=== PATIENT | female | born 1945 | race Hispanic/Latino ===

== ENCOUNTER 2018-02-20 03:12 | Inpatient (IN) | payer OTHER, SELFPAY ==
[2018-02-20] MEDS ORDERED: Ondansetron ODT 4 MG TAB ONE (03:54)
[2018-02-20] MEDS ORDERED: Acetaminophen 325 MG TAB ONE ×2 (03:55)
[2018-02-20 04:00] LABS: #Lymphocytes 0.6 thou/uL (1.20-3.40); #Monocytes 0.5 thou/uL (0.11-0.59); #Neutrophils 11.8 thou/uL (1.40-6.50); %Basophils 0.1 % (0.0-1.0); %Lymphocytes 4.8 % (21.0-51.0); %Monocytes 3.9 % (0.0-10.0); %Neutrophils 91.2 % (42.0-75.0); Hemoglobin 7.2 g/dL (12.0-16.0); Mean Corpuscular HGB CONC 35.3 g/dL (32.0-36.0); Mean Corpuscular Hemoglobin 34.1 pg (27.0-31.0); Mean Corpuscular Volume 96.7 fL (78.0-98.0); Mean Platelet Volume 6.5 fL (7.4-10.4); Platelet Count 203 thou/uL (130-400); RBC Distribution Width 12.3 % (11.5-14.5); Red Blood Cell (RBC) Count 2.12 mill/uL (4.20-5.40)
[2018-02-20 04:21] LABS: ALT (SGPT) 22 U/L (8-55); AST (SGOT) 42 U/L (5-34); Albumin 3.6 g/dL (3.4-4.8); Alkaline Phosphatase 150 U/L (40-150); Anion Gap 14 mmol/L (10-20); BUN (Urea Nitrogen) 64 mg/dL (9.8-20.1); Bilirubin, Total 0.6 mg/dL (0.2-1.2); Calc. Creatinine Clearance 0 mL/min (70-130); Calcium 8.6 mg/dL (7.8-10.44); Carbon Dioxide 17 mmol/L (23-31); Chloride 97 mmol/L (98-107); Estimated GFR-MDRD 19; Globulin 3.4 g/dL (2.4-3.5); Glucose 182 mg/dL (80-115); Potassium 4.4 mmol/L (3.5-5.1); Sodium 124 mmol/L (136-145)
[2018-02-20 05:02] LABS: Bilirubin Negative (Negative); Blood, Urine Small (Negative); Clarity TURBID (Clear); Glucose, Urine (Dipstick) Negative (Negative); Leukocyte Large (Negative); Nitrite Negative (Negative); Protein, Urine (Dipstick) 30 mg/dL (Neg-Trace); Specific Gravity, Urine 1.008 (1.002-1.036); Urobilinogen 0.2 mg/dL (0.2-1.0); pH, Urine 6.5 (5.0-9.0)
[2018-02-20 05:05] LABS: Bacteria/HPF 4+ HPF (None Seen); RBC/HPF 0-3 HPF (0-3)
[2018-02-20 05:06] LABS: Pathc Cast-AUWi Flag 2.52 (0-2.49); Yeast-AUWi Flag 36.3 (0-25.0)
[2018-02-20 05:18] LABS: Hyaline Casts/LPF 0-3 HYALINE CAST LPF (0-3 Hyaline); Yeast-All Forms None Seen HPF (None Seen)
[2018-02-20] MEDS ORDERED: cefTRIAXone\\ROCEPHIN 2 GM VIAL ONE (05:29)
[2018-02-20] MEDS ORDERED: Acetaminophen 325 MG TAB PO PRN ×2 (06:22→06:39)
[2018-02-20] MEDS ORDERED: Ondansetron HCl/PF 4 MG/2 ML Vial IVP PRN ×2 (06:22→06:39)
[2018-02-20] MEDS ORDERED: Ondansetron ODT 4 MG TAB SL PRN (06:22)
[2018-02-20] MEDS ORDERED: Sodium Chloride 0.9% 1,000 ML IV SCH (06:22)
[2018-02-20] MEDS ORDERED: Ondansetron ODT 4 MG TAB PO PRN (06:39)
[2018-02-20] MEDS ORDERED: Dextrose 5% in Water 1,000 ML IV PRN (06:39)
[2018-02-20] MEDS ORDERED: Dextrose 50% Abboject 50 ML SYRINGE SLOW IVP PRN (06:39)
[2018-02-20] MEDS ORDERED: HumaLOG 300 UNITS/3 ML VIAL SC PRN (06:39)
--- NOTE | 2018-02-20 07:12 | HP ---
PRIMARY CARE PHYSICIAN: Dr. Green. MEDICAL PRACTICE MANAGER: Dr. Dickens. REASON FOR ADMISSION: Fever, low appetite and generalized weakness. HISTORY OF PRESENT ILLNESS: Please note that Ms. Ponce has another chart, it is under the name of Bartolome reyes Annel Ponceanatoliy Mayo and that Medical record number is [id number]. She was last in the hospital back in October of this year under the residential property manager service. Ms. Ponce is a 72-year-old female that has a history of hypertension, diabetes as well as diastolic heart failure and chronic kidney d isease. She was also found to have moderate to severe aortic stenosis on her last hospital stay and during that stay, it was recommended that she have a left and right heart catheterization to characte rize her valvular disease. However, due to her elevated creatinine and generalized debility, this wa s deferred to the outpatient setting. She was also treated for urinary tract infection at that time and at that time she grew E. coli, which was an extended beta lactamase explosive expert and she was also not ed to have some degree of urinary retention at that time as well. Her family brought her in today, b ecause she was generally weak and having a poor appetite. They also noted that she was having some b ack pain as well. They also said she had some fever and some nausea on yesterday and also the patien t herself says that she has been short of breath. She says it is worse when she tries to lay back an d she has had the shortness of breath since last night and early this morning. She denies having any chest pain, no dizziness or feeling lightheaded, but she has also noted some increasing in lower ext remity edema. She was evaluated here in the ER and she was found to be anemic and a slightly elevate d white blood cell count. Her sodium was a bit low and she had a urinalysis that was consistent with a possible urinary tract infection. She is being admitted for further evaluation and treatment. REVIEW OF SYSTEMS: All systems were reviewed and are negative except that mentioned in history of pr esent illness. Also, notable is that she did deny any dysuria. She denies any blood in the urine or any urinary frequency. Also, notable is that the patient is essentially bedbound. The family says that she has not walked in over a year after having a fracture with her leg. PAST MEDICAL HISTORY: Significant for diabetes mellitus which is diet controlled, hypertension, hist ory of hyponatremia in the past, chronic diastolic heart failure. Her ejection fraction was estimate d at 55%-60%. This was earlier this year in September and also had moderate to severe aortic stenosis and diastolic dysfunction. She also has chronic kidney disease stage 3. She has a baseline creatin ine of approximately 2.07. She has a history of nonobstructing renal stones as well as urinary reten tion. She sees Dr. Stewart. PAST SURGICAL HISTORY: She has had a hip replacement, right shoulder replacement and knee surgery. ALLERGIES: No known drug allergies. SOCIAL HISTORY: She is . She is a nonsmoker, nondrinker. CODE STATUS: FULL CODE. FAMILY HISTORY: Significant for diabetes mellitus. CURRENT MEDICATIONS: Include Flomax 0.4 mg daily, Zofran, amlodipine 10 mg daily, furosemide 40 mg d aily, estradiol 0.1%. PHYSICAL EXAMINATION: GENERAL: She is alert and oriented. She appears to be in no acute distress. VITAL SIGNS: Her blood pressure was approximately 130/70, heart rate in the 70s, respiratory rate is 16, and she is afebrile. HEENT: Pupils are equal, round, and reactive. Extraocular muscles are intact. Her sclerae are anic teric. Throat no erythema, no exudates. NECK: No adenopathy, no bruits. She does have distended neck veins; however. LUNGS: She did have some rales at the bases. No wheezing. CARDIOVASCULAR: She has a normal S1 and S2. I did not appreciate an S3 or S4. She does have a very harsh loud grade 3/6 systolic murmur, which radiates to the carotids. ABDOMEN: Soft, it is nontender, nondistended. Positive for bowel sounds. There was no rebound, no guarding. EXTREMITIES: She had 2+ pitting edema. The right was much greater than that of the left. There is no erythema, no warmth. She has palpable dorsalis pedis pulses bilaterally. NEUROLOGIC: The exam is grossly nonfocal. She is able to move all her extremities and there was no evidence of any obvious weakness. SKIN/INTEGUMENT: There was no significant skin changes. No rash. LABORATORY DATA: White blood cell count was 13, hemoglobin 7.2, hematocrit is 20.5, platelet count i s 203. Sodium was 124, potassium 4.4, chloride is 97, CO2 is 17, BUN of 24, creatinine 2.5, glucose is 182. Urinalysis was significant for too numerous to count WBCs, 4+ bacteria and 7-10 squamous yasemin ls. ASSESSMENT AND PLAN: This is a pleasant 72-year-old female that presents with generalized malaise, w eakness, fever, and some dyspnea. In review of her other chart, it appears as if she has a chronic c olonization and extended beta lactamase Escherichia coli, which is likely to be the case once again. She seems to be symptomatic from this. Based on the urine culture on 11/13/2017, the E. coli did ap pear to be sensitive to Zosyn. Therefore, we will go ahead and start the Zosyn at this time pending repeat culture results and she may require ID consultation once again. 1. Hyponatremia. I suspect this could actually be due to volume overload as her chest x-ray, she ap pears to be volume overloaded radiographically as well as clinically. This seems to have been a prob hever once before in the past. Therefore, we will give her a dose of IV Lasix. We will also check uri ne and serum osmolalities as well as her urine sodium to help us differentiate. 2. Generalized weakness. I suspect this is something that is chronic and it appears as if her elect rolytes and lab abnormalities are actually not far off from where she was on her last admission. Unf ortunately, in reviewing her chart from before, it appears as if she does not have a legal resident s tatus and was unable to be placed in a [facility] facility in the past. This is likely to be a continuing issue on this admission. We will go ahead and get a PT and OT consultation while she is h ere. 3. Mild acute on chronic renal failure. This may be a cardiogenic mediated. Hopefully with some di uresis, we will see some improvement in her renal function. If not, then Nephrology consultation ana luisa land be entertained. 4. Diabetes mellitus. She is diet controlled. We will place her on a sliding scale for this and fu rther recommendations are to follow.
--- NOTE | 2018-02-20 07:38 | ULT ---
BILATERAL RENAL ULTRASOUND COMPLETE: HISTORY: A 72-year-old female with a history of renal failure. FINDINGS: The right kidney measures 7.0 x 3.2 x 3.0 cm with very markedly thinned renal cortex. The left kidne y measures 8.5 x 4.9 x 3.7 cm which is also small. No hydronephrosis. There are several poorly circ umscribed hypoechoic foci adjacent to the right renal cortex, these could conceivably represents cyst s or slightly complicated cysts or less likely small hypoechoic solid masses. The bladder is unremar kable. IMPRESSION: Small kidneys bilaterally marked on the right side with irregular cortical thinning. Several slightl y exophytic hypoechoic foci of the right kidney, nonspecific, possibly small complicated cysts. Depe nding upon concern, consider additional imaging in this regard. No renal hydronephrosis. POS: OFF
[2018-02-20] MEDS: Sodium Chloride 0.9% 1,000 ML IV SCH ×2 (07:50→16:02)
--- NOTE | 2018-02-20 08:46 | RAD ---
SINGLE VIEW OF THE CHEST: COMPARISON: None. HISTORY: Fever for 3 days and vomiting. Dyspnea. FINDINGS: A single view of the chest shows an enlarged cardiomediastinal silhouette. Bilateral pulmonary vascu lar enlargement is seen. There are opacities in the lower lobes which may represent atelectasis or i nfiltrates. Small pleural effusions may also be present. The patient has a right shoulder prosthesi s. IMPRESSION: Bilateral pleural effusions with adjacent atelectasis versus infiltrates. POS: TPC
[2018-02-20] MEDS ORDERED: Famotidine 20 MG TAB PO SCH (09:00)
[2018-02-20] MEDS: Heparin 5,000 UNITS/ML VIAL SC SCH ×3 (09:42→20:44)
[2018-02-20] MEDS: Docusate 100 MG CAP PO SCH ×2 (09:42→20:44)
[2018-02-20] MEDS: Amlodipine 10 MG TAB PO SCH (09:44)
[2018-02-20] MEDS: Furosemide 40 MG/4 ML VIAL SLOW IVP SCH (14:37)
[2018-02-20] MEDS: Piperacillin/Tazobactam 2.25 GM in Sodium Chloride 0.9% 100 ML IVPB SCH ×2 (16:01→21:05)
[2018-02-20] MEDS ORDERED: cefTRIAXone\\ROCEPHIN 1 GM in Sodium Chloride 0.9% 100 ML IVPB SCH (17:00)
[2018-02-20] MEDS: HumaLOG 300 UNITS/3 ML VIAL SC PRN (17:34)
[2018-02-21 05:29] LABS: #Basophils 0.1 thou/uL (0.0-0.2); #Eosinphils 0.1 thou/uL (0.0-0.7); #Lymphocytes 1.3 thou/uL (1.20-3.40); #Monocytes 0.8 thou/uL (0.11-0.59); #Neutrophils 15.2 thou/uL (1.40-6.50); %Basophils 0.3 % (0.0-1.0); %Eosinophils 0.3 % (0.0-10.0); %Lymphocytes 7.6 % (21.0-51.0); %Monocytes 4.6 % (0.0-10.0); %Neutrophils 87.2 % (42.0-75.0); Hemoglobin 7.6 g/dL (12.0-16.0); Mean Corpuscular HGB CONC 34.1 g/dL (32.0-36.0); Mean Corpuscular Hemoglobin 33.6 pg (27.0-31.0); Mean Corpuscular Volume 98.7 fL (78.0-98.0); Mean Platelet Volume 6.7 fL (7.4-10.4); Platelet Count 207 thou/uL (130-400); RBC Distribution Width 12.4 % (11.5-14.5); Red Blood Cell (RBC) Count 2.27 mill/uL (4.20-5.40); White Blood Cell (WBC) Count 17.4 thou/uL (4.8-10.8)
[2018-02-21 05:41] LABS: Anion Gap 12 mmol/L (10-20); BUN (Urea Nitrogen) 56 mg/dL (9.8-20.1); Calc. Creatinine Clearance 23 mL/min (70-130); Calcium 8.1 mg/dL (7.8-10.44); Carbon Dioxide 17 mmol/L (23-31); Chloride 101 mmol/L (98-107); Estimated GFR-MDRD 20; Glucose 68 mg/dL (80-115); Potassium 4.1 mmol/L (3.5-5.1); Sodium 126 mmol/L (136-145)
[2018-02-21] MEDS: Piperacillin/Tazobactam 2.25 GM in Sodium Chloride 0.9% 100 ML IVPB SCH ×3 (06:25→21:52)
[2018-02-21] MEDS: Furosemide 40 MG/4 ML VIAL SLOW IVP SCH ×2 (06:25→15:06)
[2018-02-21] MEDS: Docusate 100 MG CAP PO SCH ×2 (08:25→21:57)
[2018-02-21] MEDS: Amlodipine 10 MG TAB PO SCH (08:25)
[2018-02-21] MEDS: Heparin 5,000 UNITS/ML VIAL SC SCH ×3 (08:26→21:57)
[2018-02-21] MEDS: Famotidine 20 MG TAB PO SCH (08:26)
--- NOTE | 2018-02-21 12:37 | PDOC.PN ---
- Subjective Encounter Start Date: 02/21/18 Encounter Start Time: 12:00 -: old records requested/rev Pt seen and examined, chart reviewed in its entirety, this is my first visit with this patient Admitted yesterday for UTI. Hx of ESBL positive chronic colonization. Afebrile, WBc up to 17 today. Pt feeling better, eating well. complaint of back pain, chronic, no F/C, no n/V /D/C, no CP or sOB melissa abx without rash All systems reviewed and neg x as above - Objective Resuscitation Status: Resuscitation Status FULL:Full Resuscitation MAR Reviewed: Yes Vital Signs & Weight: Vital Signs (12 hours) Temp Pulse Resp BP BP Pulse Ox 02/21/18 11:43 98.9 F 86 16 114/56 L 96 02/21/18 08:25 85 114/62 02/21/18 08:24 98.5 F 85 16 96 02/21/18 07:51 98.5 F 85 16 114/62 96 02/21/18 05:00 99.2 F 76 18 106/55 L 100 Weight Admit Weight 145 lb Weight 147 lb I&O: 02/20/18 02/21/18 02/22/18 06:59 06:59 06:59 Intake Total 240 Balance 240 Result Diagrams: 02/21/18 04:52 02/21/18 04:52 Additional Labs: Accuchecks 02/21/18 02/21/18 02/20/18 06:00 01:25 17:07 POC Glucose 78 74 168 H 02/20/18 10:56 POC Glucose 148 H Radiology Reviewed by me: Yes EKG Reviewed by me: Yes Phys Exam - Physical Examination Constitutional: NAD HEENT: PERRLA, moist MMs, sclera anicteric, oral pharynx no lesions Neck: no nodes, no JVD, supple, full ROM Respiratory: no wheezing, no rales, no rhonchi, clear to auscultation bilateral Cardiovascular: RRR, no significant murmur, no rub Gastrointestinal: soft, non-tender, no distention, positive bowel sounds Musculoskeletal: pulses present, edema present Neurological: non-focal, normal sensation, moves all 4 limbs Lymphatic: no nodes Psychiatric: normal affect, A&O x 3 Skin: no rash, normal turgor, cap refill <2 seconds Dx/Plan (1) Severe sepsis Code(s): A41.9 - SEPSIS, UNSPECIFIED ORGANISM; R65.20 - SEVERE SEPSIS WITHOUT SEPTIC SHOCK Status: Acute Comment: present on admit, due to UTI. WBC up, afebrile, Cr better. CCM. repeat AM labs (2) UTI (urinary tract infection) Status: Acute Qualifiers: Urinary tract infection type: acute cystitis Hematuria presence: without hematuria Qualified Code(s): N30.00 - Acute cystitis without hematuria (3) SALOMON (acute kidney injury) Code(s): N17.9 - ACUTE KIDNEY FAILURE, UNSPECIFIED Status: Acute (4) CKD (chronic kidney disease) stage 4, GFR 15-29 ml/min Code(s): N18.4 - CHRONIC KIDNEY DISEASE, STAGE 4 (SEVERE) Status: Chronic (5) Acute on chronic diastolic (congestive) heart failure Code(s): I50.33 - ACUTE ON CHRONIC DIASTOLIC (CONGESTIVE) HEART FAILURE Status : Acute (6) DM2 (diabetes mellitus, type 2) Status: Chronic Qualifiers: Diabetes mellitus adjunct faculty for medical terminology insulin use: unspecified adjunct faculty for medical terminology insulin use status Diabetes mellitus complication status: with kidney complications Diabetes mellitus complication detail: with chronic kidney disease Chronic kidney disease stage: stage 4 (severe) Qualified Code(s): E11.22 - Type 2 diabetes mellitus with diabetic chronic kidney disease; N18.4 - Chronic kidney disease, stage 4 (severe); N18.4 - Chronic kidney disease, stage 4 (severe); N18.4 - Chronic kidney disease, stage 4 (severe); N18.4 - Chronic kidney disease , stage 4 (severe) - Plan cont current plan of care, continue antibiotics, out of bed/ambulate * .
--- NOTE | 2018-02-21 13:03 | EKG ---
Test Reason : FEVER,BACK PAIN Blood Pressure : / mmHG Vent. Rate : 088 BPM Atrial Rate : 088 BPM P-R Int : 184 ms QRS Dur : 090 ms QT Int : 364 ms P-R-T Axes : 047 007 059 degrees QTc Int : 440 ms Normal sinus rhythm Nonspecific ST abnormality Abnormal ECG Confirmed by ALLY SANDOVAL, LELO ([id number]), material expeditor OLYA SANCHEZ ([id number]) on 02/21/2018 1:02:45 PM Referred By: Confirmed By:LELO CANALES MD
[2018-02-22] MEDS: Piperacillin/Tazobactam 2.25 GM in Sodium Chloride 0.9% 100 ML IVPB SCH ×3 (05:07→20:53)
[2018-02-22] MEDS: Furosemide 40 MG/4 ML VIAL SLOW IVP SCH ×2 (05:07→14:30)
[2018-02-22 05:24] LABS: Hemoglobin A1c 4.4 % (4.0-6.0)
[2018-02-22 05:26] LABS: #Basophils 0.1 thou/uL (0.0-0.2); #Eosinphils 0.1 thou/uL (0.0-0.7); #Lymphocytes 1.4 thou/uL (1.20-3.40); #Monocytes 0.9 thou/uL (0.11-0.59); #Neutrophils 12.6 thou/uL (1.40-6.50); %Basophils 0.3 % (0.0-1.0); %Eosinophils 0.4 % (0.0-10.0); %Lymphocytes 9.2 % (21.0-51.0); %Monocytes 5.8 % (0.0-10.0); %Neutrophils 84.2 % (42.0-75.0); Hemoglobin 6.8 g/dL (12.0-16.0); Mean Corpuscular HGB CONC 34.5 g/dL (32.0-36.0); Mean Corpuscular Hemoglobin 33.9 pg (27.0-31.0); Mean Corpuscular Volume 98.1 fL (78.0-98.0); Mean Platelet Volume 6.6 fL (7.4-10.4); Platelet Count 200 thou/uL (130-400); RBC Distribution Width 12.4 % (11.5-14.5); Red Blood Cell (RBC) Count 2.01 mill/uL (4.20-5.40)
[2018-02-22 05:42] LABS: Anion Gap 14 mmol/L (10-20); BUN (Urea Nitrogen) 57 mg/dL (9.8-20.1); Calc. Creatinine Clearance 20 mL/min (70-130); Calcium 8.2 mg/dL (7.8-10.44); Carbon Dioxide 18 mmol/L (23-31); Chloride 99 mmol/L (98-107); Estimated GFR-MDRD 17; Glucose 82 mg/dL (80-115); Potassium 3.7 mmol/L (3.5-5.1); Sodium 127 mmol/L (136-145)
[2018-02-22] MEDS ORDERED: hydrALAZINE 20 MG/ML VIAL SLOW IVP PRN (07:44)
[2018-02-22] MEDS ORDERED: HYDROcodone/Acetaminophen 5/325 mg Tablet PO PRN (07:44)
[2018-02-22] MEDS ORDERED: Eucerin (Mineral Oil/Petrolatum,White) 30 gm Jar TOP PRN (07:44)
[2018-02-22] MEDS ORDERED: Artificial Tears 18 DROP/0.9 ML EA EYE PRN (07:44)
[2018-02-22] MEDS ORDERED: Loratadine 10 MG TAB PO PRN (07:44)
[2018-02-22] MEDS ORDERED: Sodium Chloride 0.65% Nasal 44 ML BOT EA NARE PRN (07:44)
[2018-02-22] MEDS ORDERED: Diabetic Tussin 200 MG/10 ML UDCUP PO PRN (07:44)
[2018-02-22] MEDS ORDERED: Chloraseptic Spray 180 ml Bottle PO PRN (07:44)
[2018-02-22] MEDS ORDERED: Milk Of Magnesia 30 ML UDCUP PO PRN (07:44)
[2018-02-22] MEDS ORDERED: Mag-Al 1200 mg/1200 mg/30 ML UDCUP PO PRN (07:44)
[2018-02-22] MEDS ORDERED: Epoetin (ESRD) 20,000 UNITS/ML SC SCH (07:45)
[2018-02-22] MEDS: Docusate 100 MG CAP PO SCH ×2 (08:52→20:54)
[2018-02-22] MEDS: Famotidine 20 MG TAB PO SCH (08:52)
[2018-02-22] MEDS: Amlodipine 5 MG TAB PO SCH (08:53)
[2018-02-22] MEDS: Ferrous Sulfate 325 MG TAB PO SCH (08:55)
[2018-02-22] MEDS: Saccharomyces boulardii 250 MG CAP PO SCH (08:55)
[2018-02-22] MEDS: Heparin 5,000 UNITS/ML VIAL SC SCH ×2 (08:55→20:54)
[2018-02-22] MEDS: HumaLOG 300 UNITS/3 ML VIAL SC PRN ×2 (11:00→17:29)
--- NOTE | 2018-02-22 11:16 | PDOC.PN ---
- Subjective Encounter Start Date: 02/22/18 Encounter Start Time: 07:10 -: old records requested/rev Patient seen and examined for chf and anemia, feels weak. No new complaints. No overnight events - Objective Resuscitation Status: Resuscitation Status FULL:Full Resuscitation MAR Reviewed: Yes Vital Signs & Weight: Vital Signs (12 hours) Temp Pulse Pulse Resp BP BP BP 02/22/18 10:44 99.1 F 81 17 108/58 L 02/22/18 08:53 86 110/64 02/22/18 08:00 98.2 F 86 16 110/61 02/22/18 04:00 99.1 F 79 18 112/60 02/22/18 02:52 02/22/18 00:00 98.4 F 82 20 123/64 Pulse Ox 02/22/18 10:44 95 02/22/18 08:53 02/22/18 08:00 94 L 02/22/18 04:00 97 02/22/18 02:52 100 02/22/18 00:00 93 L Weight Admit Weight 145 lb Weight 140 lb 4.8 oz I&O: 02/21/18 02/22/18 02/23/18 06:59 06:59 06:59 Intake Total 240 340 Output Total 350 Balance -110 340 Result Diagrams: 02/22/18 04:45 02/22/18 04:45 Additional Labs: Accuchecks 02/22/18 02/22/18 02/21/18 10:31 06:02 20:26 POC Glucose 161 H 89 144 H 02/21/18 02/21/18 16:33 10:43 POC Glucose 118 H 110 EKG Reviewed by me: Yes (nsr) Phys Exam - Physical Examination Constitutional: NAD HEENT: PERRLA, moist MMs, sclera anicteric Neck: no JVD, supple Respiratory: no wheezing, no rhonchi reduceed air entry at base Cardiovascular: RRR, no rub SM+ Gastrointestinal: soft, non-tender, no distention, positive bowel sounds Musculoskeletal: pulses present, edema present Neurological: non-focal, normal sensation, moves all 4 limbs Psychiatric: normal affect, A&O x 3 Skin: no rash, normal turgor Dx/Plan (1) Acute on chronic diastolic (congestive) heart failure Code(s): I50.33 - ACUTE ON CHRONIC DIASTOLIC (CONGESTIVE) HEART FAILURE Status : Acute (2) Hyponatremia Code(s): E87.1 - HYPO-OSMOLALITY AND HYPONATREMIA Status: Acute (3) Severe sepsis Code(s): A41.9 - SEPSIS, UNSPECIFIED ORGANISM; R65.20 - SEVERE SEPSIS WITHOUT SEPTIC SHOCK Status: Acute Comment: present on admit, due to UTI. WBC up, afebrile, Cr better. CCM. repeat AM labs (4) UTI (urinary tract infection) Status: Acute Qualifiers: Urinary tract infection type: acute cystitis Hematuria presence: without hematuria Qualified Code(s): N30.00 - Acute cystitis without hematuria (5) Anemia of renal disease Code(s): D63.1 - ANEMIA IN CHRONIC KIDNEY DISEASE Status: Chronic (6) CKD (chronic kidney disease) stage 4, GFR 15-29 ml/min Code(s): N18.4 - CHRONIC KIDNEY DISEASE, STAGE 4 (SEVERE) Status: Chronic (7) DM2 (diabetes mellitus, type 2) Status: Chronic Qualifiers: Diabetes mellitus study manager insulin use: unspecified intermediate insulin use status Diabetes mellitus complication status: with kidney complications Diabetes mellitus complication detail: with chronic kidney disease Chronic kidney disease stage: stage 4 (severe) Qualified Code(s): E11.22 - Type 2 diabetes mellitus with diabetic chronic kidney disease; N18.4 - Chronic kidney disease, stage 4 (severe); N18.4 - Chronic kidney disease, stage 4 (severe); N18.4 - Chronic kidney disease, stage 4 (severe); N18.4 - Chronic kidney disease , stage 4 (severe) (8) Secondary hyperparathyroidism of renal origin Code(s): N25.81 - SECONDARY HYPERPARATHYROIDISM OF RENAL ORIGIN Status: Chronic - Plan cont current plan of care, plan discussed w/ family, continue antibiotics, DVT proph w/heparin * add procrit * add renvela * reduce amlodipine to 5 mg daily * transfuse 1 unit prbc * medication reviewed as below * symptomatic treatment * discussed with . * continue zosyn * add ferrous sulfate, nephrovite Review of Systems - Review of Systems Constitutional: weakness. negative: fever, chills, sweats, malaise, other Eyes: negative: Pain, Vision Change, Conjunctivae Inflammation, Eyelid Inflammation, Redness, Other ENT: negative: Ear Pain, Ear Discharge, Nose Pain, Nose Discharge, Nose Congestion, Mouth Pain, Mouth Swelling, Throat Pain, Throat Swelling, Other Respiratory: negative: Cough, Dry, Shortness of Breath, Hemoptysis, SOB with Excertion, Pleuritic Pain, Sputum, Wheezing Cardiovascular: negative: chest pain, palpitations, orthopnea, paroxysmal nocturnal dyspnea, edema, light headedness, other Gastrointestinal: negative: Nausea, Vomiting, Abdominal Pain, Diarrhea, Constipation, Melena, Hematochezia, Other Genitourinary: negative: Dysuria, Frequency, Incontinence, Hematuria, Retention , Other Musculoskeletal: negative: Neck Pain, Shoulder Pain, Arm Pain, Back Pain, Hand Pain, Leg Pain, Foot Pain, Other Skin: negative: Rash, Lesions, Anam, Bruising, Other - Medications/Allergies Allergies/Adverse Reactions: Allergies Allergy/AdvReac Type Severity Reaction Status Date / Time No Known Allergies Allergy Verified 02/20/18 13:17 Medications: Current Medications Acetaminophen (Tylenol) 650 mg PO Q4H PRN PRN Reason: Headache/Fever or Pain Last Admin: 02/20/18 18:33 Dose: 650 mg Hydrocodone Bitart/Acetaminophen ([place] 5/325) 1 tab PO Q4H PRN PRN Reason: Moderate Pain (4-6) Al Hydroxide/Mg Hydroxide (Maalox) 15 ml PO Q4H PRN PRN Reason: Heartburn or Indigestion Amlodipine Besylate (Norvasc) 5 mg PO DAILY [facility] Last Admin: 02/22/18 08:53 Dose: 5 mg Artificial Tears (Tears Naturale) 0 drop EA EYE PRN PRN PRN Reason: Dry Eyes Dextrose/Water (Dextrose 50%) 25 gm SLOW IVP PRN PRN PRN Reason: Hypoglycemia Docusate Sodium (Colace) 100 mg PO BID [facility] Last Admin: 02/22/18 08:52 Dose: 100 mg Epoetin Trerell (Procrit) 7,500 units SC Q7D [facility] Last Admin: 02/22/18 09:24 Dose: 7,500 units Famotidine (Pepcid) 20 mg PO DAILY [facility] Last Admin: 02/22/18 08:52 Dose: 20 mg Ferrous Sulfate (Feosol) 325 mg PO QAM-WM [facility] Last Admin: 02/22/18 08:55 Dose: 325 mg Furosemide (Lasix) 40 mg SLOW IVP 0600,1400 [facility] Last Admin: 02/22/18 05:07 Dose: 40 mg Glucagon (Glucagon) 1 mg IM PRN PRN PRN Reason: Hypoglycemia Guaifenesin (Robitussin Sf) 200 mg PO Q4H PRN PRN Reason: Cough Heparin Sodium (Porcine) (Heparin) 5,000 units SC BID [facility] Last Admin: 02/22/18 08:55 Dose: 5,000 units Hydralazine HCl (Apresoline) 10 mg SLOW IVP Q4H PRN PRN Reason: Systolic BP > 180 Dextrose/Water (D5w) 1,000 mls @ 0 mls/hr IV .Q0M PRN; As Directed PRN Reason: Hypoglycemia Piperacillin Sod/Tazobactam (Sod 2.25 gm/ Sodium Chloride) 100 mls @ 200 mls/ hr IVPB Q8HR [facility] Last Admin: 02/22/18 05:07 Dose: 100 mls Insulin Human Lispro (Humalog) 0 units SC .MODERATE SLIDING SC PRN PRN Reason: Moderate Correctional Scale Last Admin: 02/22/18 11:00 Dose: 2 unit Insulin Human Lispro (Humalog) 0 units SC .BEDTIME SLIDING SC PRN PRN Reason: Bedtime Correctional Scale Loratadine (Claritin) 10 mg PO DAILYPRN PRN PRN Reason: Sinus Symptoms Magnesium Hydroxide (Milk Of Magnesium) 30 ml PO DAILYPRN PRN PRN Reason: Constipation Mineral Oil/White Petrolatum (Eucerin Cream) 0 gm TOP BIDPRN PRN PRN Reason: Dry Skin Ondansetron HCl (Zofran Odt) 4 mg PO Q6H PRN PRN Reason: Nausea/Vomiting Ondansetron HCl (Zofran) 4 mg IVP Q6H PRN PRN Reason: Nausea/Vomiting Phenol (Chloraseptic Armstrong 180 Ml Bot) 0 ml PO PRN PRN PRN Reason: Sore Throat Saccharomyces Boulardii (Florastor) 250 mg PO DAILY [facility] Last Admin: 02/22/18 08:55 Dose: 250 mg Sodium Chloride (Flush - Normal Saline) 10 ml IVF Q12HR [facility] Last Admin: 02/22/18 10:41 Dose: 10 ml Sodium Chloride (Flush - Normal Saline) 10 ml IVF PRN PRN PRN Reason: Saline Flush Last Admin: 02/21/18 06:25 Dose: 10 ml Sodium Chloride ([place] Nasal Armstrong 0.65%) 0 ml EA NARE QIDPRN PRN PRN Reason: Nasal Congestion
[2018-02-22] MEDS: Sevelamer Carbonate 800 MG TAB PO SCH ×2 (12:34→16:26)
[2018-02-23 05:17] LABS: #Eosinphils 0.1 thou/uL (0.0-0.7); #Lymphocytes 1.7 thou/uL (1.20-3.40); #Monocytes 0.8 thou/uL (0.11-0.59); #Neutrophils 8.8 thou/uL (1.40-6.50); %Basophils 0.4 % (0.0-1.0); %Eosinophils 1.2 % (0.0-10.0); %Lymphocytes 14.9 % (21.0-51.0); %Monocytes 6.9 % (0.0-10.0); %Neutrophils 76.7 % (42.0-75.0); Hemoglobin 8.7 g/dL (12.0-16.0); Mean Corpuscular Hemoglobin 33.3 pg (27.0-31.0); Mean Corpuscular Volume 95.3 fL (78.0-98.0); Mean Platelet Volume 6.3 fL (7.4-10.4); Platelet Count 219 thou/uL (130-400); RBC Distribution Width 13.4 % (11.5-14.5); Red Blood Cell (RBC) Count 2.62 mill/uL (4.20-5.40); White Blood Cell (WBC) Count 11.5 thou/uL (4.8-10.8)
[2018-02-23 05:22] LABS: ALT (SGPT) 12 U/L (8-55); AST (SGOT) 13 U/L (5-34); Albumin 3.1 g/dL (3.4-4.8); Alkaline Phosphatase 104 U/L (40-150); Anion Gap 14 mmol/L (10-20); BUN (Urea Nitrogen) 51 mg/dL (9.8-20.1); Bilirubin, Total 0.7 mg/dL (0.2-1.2); Calc. Creatinine Clearance 20 mL/min (70-130); Calcium 8.4 mg/dL (7.8-10.44); Carbon Dioxide 18 mmol/L (23-31); Chloride 99 mmol/L (98-107); Estimated GFR-MDRD 17; Globulin 3.3 g/dL (2.4-3.5); Glucose 87 mg/dL (80-115); Potassium 3.4 mmol/L (3.5-5.1); Protein, Total 6.4 g/dL (6.0-8.3); Sodium 128 mmol/L (136-145)
[2018-02-23] MEDS: Furosemide 40 MG/4 ML VIAL SLOW IVP SCH ×2 (05:36→13:51)
[2018-02-23] MEDS: Piperacillin/Tazobactam 2.25 GM in Sodium Chloride 0.9% 100 ML IVPB SCH ×2 (05:36→13:51)
[2018-02-23] MEDS: Famotidine 20 MG TAB PO SCH (08:11)
[2018-02-23] MEDS: Folic Acid/Vit B Comp W-C PO SCH (08:11)
[2018-02-23] MEDS: Sevelamer Carbonate 800 MG TAB PO SCH ×3 (08:11→16:44)
[2018-02-23] MEDS: Amlodipine 5 MG TAB PO SCH (08:11)
[2018-02-23] MEDS: Ferrous Sulfate 325 MG TAB PO SCH (08:11)
[2018-02-23] MEDS: Heparin 5,000 UNITS/ML VIAL SC SCH ×2 (08:12→20:46)
[2018-02-23] MEDS: Docusate 100 MG CAP PO SCH ×2 (08:12→20:46)
[2018-02-23] MEDS: Saccharomyces boulardii 250 MG CAP PO SCH (08:12)
--- NOTE | 2018-02-23 10:04 | PDOC.PN ---
- Subjective Encounter Start Date: 02/23/18 Encounter Start Time: 07:10 Patient seen and examined for uti. No new complaints. No overnight events - Objective Resuscitation Status: Resuscitation Status FULL:Full Resuscitation MAR Reviewed: Yes Vital Signs & Weight: Vital Signs (12 hours) Temp Pulse Resp BP BP Pulse Ox 02/23/18 08:16 98.2 F 80 20 91 L 02/23/18 08:11 80 125/64 02/23/18 07:44 98.2 F 81 20 125/61 91 L 02/23/18 03:41 98 F 85 20 125/67 93 L 02/23/18 00:09 98.2 F 85 20 130/64 92 L Weight Admit Weight 145 lb Weight 144 lb 9.6 oz I&O: 02/22/18 02/23/18 02/24/18 06:59 06:59 06:59 Intake Total 240 1620 Output Total 350 250 Balance -110 1370 Result Diagrams: 02/23/18 04:38 02/23/18 04:38 Additional Labs: Accuchecks 02/23/18 02/22/18 02/22/18 05:07 21:02 17:17 POC Glucose 93 131 H 174 H 02/22/18 10:31 POC Glucose 161 H EKG Reviewed by me: Yes (nsr) Phys Exam - Physical Examination Constitutional: NAD HEENT: PERRLA, moist MMs, sclera anicteric Neck: no JVD, supple Respiratory: no wheezing, no rales, no rhonchi Cardiovascular: RRR, no rub SM+ Gastrointestinal: soft, non-tender, no distention, positive bowel sounds Musculoskeletal: no edema, pulses present Neurological: non-focal, normal sensation, moves all 4 limbs Lymphatic: no nodes Psychiatric: normal affect, A&O x 3 Skin: no rash, normal turgor Dx/Plan (1) Acute on chronic diastolic (congestive) heart failure Code(s): I50.33 - ACUTE ON CHRONIC DIASTOLIC (CONGESTIVE) HEART FAILURE Status : Acute (2) Hyponatremia Code(s): E87.1 - HYPO-OSMOLALITY AND HYPONATREMIA Status: Acute (3) Severe sepsis Code(s): A41.9 - SEPSIS, UNSPECIFIED ORGANISM; R65.20 - SEVERE SEPSIS WITHOUT SEPTIC SHOCK Status: Acute Comment: present on admit, due to UTI. WBC up, afebrile, Cr better. CCM. repeat AM labs (4) UTI (urinary tract infection) Status: Acute Qualifiers: Urinary tract infection type: acute cystitis Hematuria presence: without hematuria Qualified Code(s): N30.00 - Acute cystitis without hematuria (5) Anemia of renal disease Code(s): D63.1 - ANEMIA IN CHRONIC KIDNEY DISEASE Status: Chronic (6) CKD (chronic kidney disease) stage 4, GFR 15-29 ml/min Code(s): N18.4 - CHRONIC KIDNEY DISEASE, STAGE 4 (SEVERE) Status: Chronic (7) DM2 (diabetes mellitus, type 2) Status: Chronic Qualifiers: Diabetes mellitus termite control technician insulin use: unspecified senior living insulin use status Diabetes mellitus complication status: with kidney complications Diabetes mellitus complication detail: with chronic kidney disease Chronic kidney disease stage: stage 4 (severe) Qualified Code(s): E11.22 - Type 2 diabetes mellitus with diabetic chronic kidney disease; N18.4 - Chronic kidney disease, stage 4 (severe); N18.4 - Chronic kidney disease, stage 4 (severe); N18.4 - Chronic kidney disease, stage 4 (severe); N18.4 - Chronic kidney disease , stage 4 (severe) (8) Secondary hyperparathyroidism of renal origin Code(s): N25.81 - SECONDARY HYPERPARATHYROIDISM OF RENAL ORIGIN Status: Chronic - Plan cont current plan of care, plan discussed w/ family, continue antibiotics, social contact worker * DC tele * transfer to medical * Consult ID to decide if we need to treat MDR bacterial UTI vs just colonization * medication reviewed as below * symptomatic treatment Review of Systems - Review of Systems Eyes: negative: Pain, Vision Change, Conjunctivae Inflammation, Eyelid Inflammation, Redness, Other ENT: negative: Ear Pain, Ear Discharge, Nose Pain, Nose Discharge, Nose Congestion, Mouth Pain, Mouth Swelling, Throat Pain, Throat Swelling, Other Respiratory: negative: Cough, Dry, Shortness of Breath, Hemoptysis, SOB with Excertion, Pleuritic Pain, Sputum, Wheezing Cardiovascular: negative: chest pain, palpitations, orthopnea, paroxysmal nocturnal dyspnea, edema, light headedness, other Gastrointestinal: negative: Nausea, Vomiting, Abdominal Pain, Diarrhea, Constipation, Melena, Hematochezia, Other Genitourinary: negative: Dysuria, Frequency, Incontinence, Hematuria, Retention , Other Musculoskeletal: negative: Neck Pain, Shoulder Pain, Arm Pain, Back Pain, Hand Pain, Leg Pain, Foot Pain, Other Skin: negative: Rash, Lesions, Anam, Bruising, Other - Medications/Allergies Allergies/Adverse Reactions: Allergies Allergy/AdvReac Type Severity Reaction Status Date / Time No Known Allergies Allergy Verified 02/20/18 13:17 Medications: Current Medications Acetaminophen (Tylenol) 650 mg PO Q4H PRN PRN Reason: Headache/Fever or Pain Last Admin: 02/20/18 18:33 Dose: 650 mg Hydrocodone Bitart/Acetaminophen ([place] 5/325) 1 tab PO Q4H PRN PRN Reason: Moderate Pain (4-6) Al Hydroxide/Mg Hydroxide (Maalox) 15 ml PO Q4H PRN PRN Reason: Heartburn or Indigestion Amlodipine Besylate (Norvasc) 5 mg PO DAILY [facility] Last Admin: 02/23/18 08:11 Dose: 5 mg Artificial Tears (Tears Naturale) 0 drop EA EYE PRN PRN PRN Reason: Dry Eyes Dextrose/Water (Dextrose 50%) 25 gm SLOW IVP PRN PRN PRN Reason: Hypoglycemia Docusate Sodium (Colace) 100 mg PO BID [facility] Last Admin: 02/23/18 08:12 Dose: 100 mg Epoetin Terrell (Procrit) 7,500 units SC Q7D [facility] Last Admin: 02/22/18 09:24 Dose: 7,500 units Famotidine (Pepcid) 20 mg PO DAILY [facility] Last Admin: 02/23/18 08:11 Dose: 20 mg Ferrous Sulfate (Feosol) 325 mg PO QAM-[facility] Last Admin: 02/23/18 08:11 Dose: 325 mg Furosemide (Lasix) 40 mg SLOW IVP 0600,1400 [facility] Last Admin: 02/23/18 05:36 Dose: 40 mg Glucagon (Glucagon) 1 mg IM PRN PRN PRN Reason: Hypoglycemia Guaifenesin (Robitussin Sf) 200 mg PO Q4H PRN PRN Reason: Cough Heparin Sodium (Porcine) (Heparin) 5,000 units SC BID [facility] Last Admin: 02/23/18 08:12 Dose: 5,000 units Hydralazine HCl (Apresoline) 10 mg SLOW IVP Q4H PRN PRN Reason: Systolic BP > 180 Dextrose/Water (D5w) 1,000 mls @ 0 mls/hr IV .Q0M PRN; As Directed PRN Reason: Hypoglycemia Piperacillin Sod/Tazobactam (Sod 2.25 gm/ Sodium Chloride) 100 mls @ 200 mls/ hr IVPB Q8HR [facility] Last Admin: 02/23/18 05:36 Dose: 100 mls Insulin Human Lispro (Humalog) 0 units SC .MODERATE SLIDING SC PRN PRN Reason: Moderate Correctional Scale Last Admin: 02/22/18 17:29 Dose: 2 unit Insulin Human Lispro (Humalog) 0 units SC .BEDTIME SLIDING SC PRN PRN Reason: Bedtime Correctional Scale Loratadine (Claritin) 10 mg PO DAILYPRN PRN PRN Reason: Sinus Symptoms Magnesium Hydroxide (Milk Of Magnesium) 30 ml PO DAILYPRN PRN PRN Reason: Constipation Mineral Oil/White Petrolatum (Eucerin Cream) 0 gm TOP BIDPRN PRN PRN Reason: Dry Skin Ondansetron HCl (Zofran Odt) 4 mg PO Q6H PRN PRN Reason: Nausea/Vomiting Ondansetron HCl (Zofran) 4 mg IVP Q6H PRN PRN Reason: Nausea/Vomiting Phenol (Chloraseptic [place] 180 Ml Bot) 0 ml PO PRN PRN PRN Reason: Sore Throat Saccharomyces Boulardii (Florastor) 250 mg PO DAILY [facility] Last Admin: 02/23/18 08:12 Dose: 250 mg Sevelamer Carbonate (Renvela) 800 mg PO TID-[facility] Last Admin: 02/23/18 08:11 Dose: 800 mg Sodium Chloride (Flush - Normal Saline) 10 ml IVF Q12HR [facility] Last Admin: 02/23/18 09:09 Dose: 10 ml Sodium Chloride (Flush - Normal Saline) 10 ml IVF PRN PRN PRN Reason: Saline Flush Last Admin: 02/23/18 05:37 Dose: 10 ml Sodium Chloride ([place] Nasal [place] 0.65%) 0 ml EA NARE QIDPRN PRN PRN Reason: Nasal Congestion Vitamin B Complex/Vit C/Folic Acid (Nephro-Zafar Tablet) 1 tab PO DAILY [facility] Last Admin: 02/23/18 08:11 Dose: 1 tab
[2018-02-23] MEDS: HumaLOG 300 UNITS/3 ML VIAL SC PRN (12:18)
[2018-02-23] MEDS: Meropenem 500 MG in Sodium Chloride 0.9% 100 ML IVPB SCH (20:46)
--- NOTE | 2018-02-24 01:54 | CON ---
DATE OF CONSULTATION: 02/23/2018 REASON FOR CONSULTATION: Abnormal urinalysis with a resistant pathogen and urine culture. HISTORY OF PRESENT ILLNESS: A 72-year-old, just to be the first admission to this hospital at least within the recent time who has a history of hypertension , diabetes, diastolic heart failure, renal insufficiency and was found to have severe aortic stenosis. She actually has a different hospital record number and she must have had previous admissions to this hospital, but in a different file. When she was admitted the last time, she was recommended to have a heart catheterization, but this was deferred because of elevated creatinine. She also had an ESBL E. coli in the urinary tract and some degree of urinary retention at that time. The reason for this admission include the development of weakness. She stated to me that she was having shortness of breath. She has some back pain in lower back region, which is very symmetrically distributed. Had some fever, some nausea. No headaches, no change in visual symptoms, sore throat, odynophagia, dysphagia, no vomiting. She does have urinary incontinence, but denied any dysuria or hematuria. No diarrhea or constipation. PAST MEDICAL HISTORY: Includes type 2 diabetes, hypertension, diastolic CHF, EF 55-60%, aortic stenosis, renal insufficiency, and nephrolithiasis. Reportedly, had a fracture in the leg and has a limp right foot following this fracture, has not been able to walk over a year. She also had a right shoulder just to be a fracture or some other disorder that led to surgical intervention. She is weaker in the right upper extremity as well. She denied any prior CVA. PAST SURGICAL HISTORY: Also includes hip replacement and right shoulder replacement. ALLERGIES: None. SOCIAL HISTORY: Nonsmoker. Has had 10 kids. FAMILY HISTORY: Diabetes type 2. CURRENT MEDICATIONS: Include hydrocodone, Maalox, Norvasc, dextrose, docusate, Procrit, Pepcid, Lasix, Feosol, Robitussin, insulin, loratadine, Zofran, Zosyn, Renvela. PHYSICAL EXAMINATION: VITAL SIGNS: T-max 100.6 on arrival. She has been afebrile since blood pressure 120/60, pulse 76, respirations 18, O2 sat 92-96%. SKIN: With areas of laceration in the lateral aspect of the right leg from a fall and abrasion, she has a little bit of erythema in intertriginous areas of the right gluteal region. NECK: The patient has no lymphadenopathy. Supple, no jugular vein distention. GENERAL: She is awake, oriented. HEENT: Ocular movements conjugate. Pupils are equal. Conjunctivae normal. Nasal passages patent. Oral cavity with numerous teeth with marked decay and some gum disease. LUNGS: With symmetric air entry with bibasilar inspiratory crackles. HEART: S1, S2, regular rate with a soft aortic murmur. ABDOMEN: Soft, not distended or tender. No ascites. No bladder distention or maybe a question of bladder distention. EXTREMITIES: She has a limp right foot. Little weaker right lower extremity and the right upper extremity, probably related to the fractures in both sides and both limbs that she states the left side appears to have normal strength. Pulses are 1+ in dorsalis pedis. Plantar responses are absent on the right side , in the left side flexor. NEUROLOGIC: Cognitive function appears to be intact. LABORATORY DATA: White cell count 13,000, now down to 11, hemoglobin 8.7, platelets 219 and 76% neutrophils. Sodium 128, creatinine 2.77. Liver profile normal. Albumin 3.1. Urinalysis with wbc's greater than 50. Urine culture with E. coli which has an ESBL phenotype. The same organism was isolated at the end of December and November of this year. There is a renal ultrasound from 2017 with small kidneys bilaterally with irregular cortical thinning, but no nephrolithiasis. ASSESSMENT: Type 2 diabetes; renal insufficiency, chronic; question of urinary retention; chronic colonization of urinary bladder, now with a possible invasive infection in the phase of fever and abnormal urinalysis and severe aortic stenosis. The patient has mobility impairment because of prior fracture in the right lower extremity with limp right foot. DISCUSSION: Patient will continue on treatment with meropenem adjusted for renal function and she will need treatment for at least another 7-10 days. She would otherwise need a Mata catheter placement, but we will see if we can arrange this treatment given via peripheral IV access to avoid having to place a central line and administer Invanz for a total of 10 days. It is important to verify that she has proper emptying, otherwise, she will need in and out catheterization. DANED
[2018-02-24] MEDS: Furosemide 40 MG/4 ML VIAL SLOW IVP SCH ×2 (06:19→13:14)
[2018-02-24] MEDS: Sevelamer Carbonate 800 MG TAB PO SCH ×2 (08:13→11:44)
[2018-02-24] MEDS: Ferrous Sulfate 325 MG TAB PO SCH (08:13)
[2018-02-24] MEDS: Amlodipine 5 MG TAB PO SCH (08:13)
[2018-02-24] MEDS: Saccharomyces boulardii 250 MG CAP PO SCH (08:14)
[2018-02-24] MEDS: Famotidine 20 MG TAB PO SCH (08:14)
[2018-02-24] MEDS: Docusate 100 MG CAP PO SCH (08:14)
[2018-02-24] MEDS: Heparin 5,000 UNITS/ML VIAL SC SCH (08:14)
[2018-02-24] MEDS: Folic Acid/Vit B Comp W-C PO SCH (08:14)
[2018-02-24] MEDS: Meropenem 500 MG in Sodium Chloride 0.9% 100 ML IVPB SCH (08:37)
--- NOTE | 2018-02-24 12:18 | PDOC.PN ---
- Subjective Encounter Start Date: 02/24/18 Encounter Start Time: 08:00 Patient seen and examined for UTI. No new complaints. No overnight events - Objective Resuscitation Status: Resuscitation Status FULL:Full Resuscitation MAR Reviewed: Yes Vital Signs & Weight: Vital Signs (12 hours) Temp Pulse Resp BP BP Pulse Ox 02/24/18 08:23 98.4 F 89 18 94 L 02/24/18 08:13 89 132/67 02/24/18 07:40 98.4 F 89 18 132/67 94 L 02/24/18 04:00 98.1 F 83 16 121/61 93 L Weight Admit Weight 145 lb Weight 142 lb 8 oz I&O: 02/23/18 02/24/18 02/25/18 06:59 06:59 06:59 Intake Total 1620 720 Output Total 250 Balance 1370 720 Result Diagrams: 02/23/18 04:38 02/23/18 04:38 Additional Labs: Accuchecks 02/24/18 02/24/18 02/23/18 11:37 04:43 20:45 POC Glucose 139 H 118 H 183 H 02/23/18 16:22 POC Glucose 97 Phys Exam - Physical Examination Constitutional: NAD HEENT: PERRLA, moist MMs, sclera anicteric Neck: no JVD, supple Respiratory: no wheezing, no rales, no rhonchi Cardiovascular: RRR, no significant murmur, no rub Gastrointestinal: soft, non-tender, no distention, positive bowel sounds Musculoskeletal: no edema, pulses present Neurological: non-focal, normal sensation, moves all 4 limbs Lymphatic: no nodes Psychiatric: normal affect, A&O x 3 Skin: no rash, normal turgor Dx/Plan (1) Acute on chronic diastolic (congestive) heart failure Code(s): I50.33 - ACUTE ON CHRONIC DIASTOLIC (CONGESTIVE) HEART FAILURE Status : Acute (2) Hyponatremia Code(s): E87.1 - HYPO-OSMOLALITY AND HYPONATREMIA Status: Acute (3) Severe sepsis Code(s): A41.9 - SEPSIS, UNSPECIFIED ORGANISM; R65.20 - SEVERE SEPSIS WITHOUT SEPTIC SHOCK Status: Acute Comment: present on admit, due to UTI. WBC up, afebrile, Cr better. CCM. repeat AM labs (4) UTI (urinary tract infection) Status: Acute Qualifiers: Urinary tract infection type: acute cystitis Hematuria presence: without hematuria Qualified Code(s): N30.00 - Acute cystitis without hematuria (5) Anemia of renal disease Code(s): D63.1 - ANEMIA IN CHRONIC KIDNEY DISEASE Status: Chronic (6) CKD (chronic kidney disease) stage 4, GFR 15-29 ml/min Code(s): N18.4 - CHRONIC KIDNEY DISEASE, STAGE 4 (SEVERE) Status: Chronic (7) DM2 (diabetes mellitus, type 2) Status: Chronic Qualifiers: Diabetes mellitus manager terminal insulin use: unspecified half-way insulin use status Diabetes mellitus complication status: with kidney complications Diabetes mellitus complication detail: with chronic kidney disease Chronic kidney disease stage: stage 4 (severe) Qualified Code(s): E11.22 - Type 2 diabetes mellitus with diabetic chronic kidney disease; N18.4 - Chronic kidney disease, stage 4 (severe); N18.4 - Chronic kidney disease, stage 4 (severe); N18.4 - Chronic kidney disease, stage 4 (severe); N18.4 - Chronic kidney disease , stage 4 (severe) (8) Secondary hyperparathyroidism of renal origin Code(s): N25.81 - SECONDARY HYPERPARATHYROIDISM OF RENAL ORIGIN Status: Chronic - Plan cont current plan of care, plan discussed w/ family, continue antibiotics, social worker assistant * continue renal adjusted meropenam as per ID. * social work to arrange outpt IV invanz as per ID * overall stable for now * medication reviewed as below * symptomatic treatment Review of Systems - Review of Systems Eyes: negative: Pain, Vision Change, Conjunctivae Inflammation, Eyelid Inflammation, Redness, Other ENT: negative: Ear Pain, Ear Discharge, Nose Pain, Nose Discharge, Nose Congestion, Mouth Pain, Mouth Swelling, Throat Pain, Throat Swelling, Other Respiratory: negative: Cough, Dry, Shortness of Breath, Hemoptysis, SOB with Excertion, Pleuritic Pain, Sputum, Wheezing Cardiovascular: negative: chest pain, palpitations, orthopnea, paroxysmal nocturnal dyspnea, edema, light headedness, other Gastrointestinal: negative: Nausea, Vomiting, Abdominal Pain, Diarrhea, Constipation, Melena, Hematochezia, Other Genitourinary: negative: Dysuria, Frequency, Incontinence, Hematuria, Retention , Other Musculoskeletal: negative: Neck Pain, Shoulder Pain, Arm Pain, Back Pain, Hand Pain, Leg Pain, Foot Pain, Other Skin: negative: Rash, Lesions, Anam, Bruising, Other - Medications/Allergies Allergies/Adverse Reactions: Allergies Allergy/AdvReac Type Severity Reaction Status Date / Time No Known Allergies Allergy Verified 02/20/18 13:17 Medications: Current Medications Acetaminophen (Tylenol) 650 mg PO Q4H PRN PRN Reason: Headache/Fever or Pain Last Admin: 02/20/18 18:33 Dose: 650 mg Hydrocodone Bitart/Acetaminophen ([place] 5/325) 1 tab PO Q4H PRN PRN Reason: Moderate Pain (4-6) Al Hydroxide/Mg Hydroxide (Maalox) 15 ml PO Q4H PRN PRN Reason: Heartburn or Indigestion Amlodipine Besylate (Norvasc) 5 mg PO DAILY [facility] Last Admin: 02/24/18 08:13 Dose: 5 mg Artificial Tears (Tears Naturale) 0 drop EA EYE PRN PRN PRN Reason: Dry Eyes Dextrose/Water (Dextrose 50%) 25 gm SLOW IVP PRN PRN PRN Reason: Hypoglycemia Docusate Sodium (Colace) 100 mg PO BID [facility] Last Admin: 02/24/18 08:14 Dose: 100 mg Epoetin Terrell (Procrit) 7,500 units SC Q7D [facility] Last Admin: 02/22/18 09:24 Dose: 7,500 units Famotidine (Pepcid) 20 mg PO DAILY [facility] Last Admin: 02/24/18 08:14 Dose: 20 mg Ferrous Sulfate (Feosol) 325 mg PO QAM-[facility] Last Admin: 02/24/18 08:13 Dose: 325 mg Furosemide (Lasix) 40 mg SLOW IVP 0600,1400 [facility] Last Admin: 02/24/18 06:19 Dose: 40 mg Glucagon (Glucagon) 1 mg IM PRN PRN PRN Reason: Hypoglycemia Guaifenesin (Robitussin Sf) 200 mg PO Q4H PRN PRN Reason: Cough Heparin Sodium (Porcine) (Heparin) 5,000 units SC BID [facility] Last Admin: 02/24/18 08:14 Dose: 5,000 units Hydralazine HCl (Apresoline) 10 mg SLOW IVP Q4H PRN PRN Reason: Systolic BP > 180 Dextrose/Water (D5w) 1,000 mls @ 0 mls/hr IV .Q0M PRN; As Directed PRN Reason: Hypoglycemia Meropenem 500 mg/ Sodium (Chloride) 100 mls @ 200 mls/hr IVPB Q12HR [facility] Last Admin: 02/24/18 08:37 Dose: 100 mls Insulin Human Lispro (Humalog) 0 units SC .MODERATE SLIDING SC PRN PRN Reason: Moderate Correctional Scale Last Admin: 02/23/18 12:18 Dose: 2 unit Insulin Human Lispro (Humalog) 0 units SC .BEDTIME SLIDING SC PRN PRN Reason: Bedtime Correctional Scale Loratadine (Claritin) 10 mg PO DAILYPRN PRN PRN Reason: Sinus Symptoms Magnesium Hydroxide (Milk Of Magnesium) 30 ml PO DAILYPRN PRN PRN Reason: Constipation Mineral Oil/White Petrolatum (Eucerin Cream) 0 gm TOP BIDPRN PRN PRN Reason: Dry Skin Ondansetron HCl (Zofran Odt) 4 mg PO Q6H PRN PRN Reason: Nausea/Vomiting Last Admin: 02/24/18 08:23 Dose: 4 mg Ondansetron HCl (Zofran) 4 mg IVP Q6H PRN PRN Reason: Nausea/Vomiting Phenol (Chloraseptic [place] 180 Ml Bot) 0 ml PO PRN PRN PRN Reason: Sore Throat Saccharomyces Boulardii (Florastor) 250 mg PO DAILY [facility] Last Admin: 02/24/18 08:14 Dose: 250 mg Sevelamer Carbonate (Renvela) 800 mg PO TID-[facility] Last Admin: 02/24/18 11:44 Dose: 800 mg Sodium Chloride (Flush - Normal Saline) 10 ml IVF Q12HR [facility] Last Admin: 02/24/18 08:15 Dose: 10 ml Sodium Chloride (Flush - Normal Saline) 10 ml IVF PRN PRN PRN Reason: Saline Flush Last Admin: 02/23/18 05:37 Dose: 10 ml Sodium Chloride ([place] Nasal [place] 0.65%) 0 ml EA NARE QIDPRN PRN PRN Reason: Nasal Congestion Vitamin B Complex/Vit C/Folic Acid (Nephro-Zafar Tablet) 1 tab PO DAILY [facility] Last Admin: 02/24/18 08:14 Dose: 1 tab
[2018-02-24 13:43] VITALS: BMI 27.8
--- NOTE | 2018-02-24 15:33 | DIS ---
PRIMARY CARE PHYSICIAN: [facility] call admission, Dr. Paige Green. DATE OF ADMISSION: 02/20/2018 DATE OF DISCHARGE: 02/24/2018 DISCHARGE DISPOSITION: Home with outpatient IV antibiotic therapy. PRIMARY DISCHARGE DIAGNOSES: 1. Sepsis, urinary tract infection due to multidrug resistant bacteria. 2. Acute on chronic diastolic heart failure. 3. Hyponatremia. SECONDARY DISCHARGE DIAGNOSES: Secondary hyperparathyroidism of renal origin, diabetes type 2, chron ic kidney disease stage 4, anemia of renal disease, and urinary tract infection. PRIMARY PROCEDURE/OPERATION: None. RADIOLOGICAL INVESTIGATION: Renal ultrasound was unremarkable other than small kidneys. Chest x-ray showed pulmonary vascular congestion. SIGNIFICANT LABORATORY DATA: WBC 11.5, hemoglobin 8.7, platelet 219. Sodium 128, creatinine 2.77. LFT normal. Urinalysis suggestive of UTI. Urine culture grew E. coli. Stool for guaiac negative. Blood culture negative. DISCHARGE MEDICATIONS: Amlodipine 10 mg p.o. daily, Tums 500 mg p.o. b.i.d., cranberry 1 capsule gila ly, Invanz 500 mg IV daily for 10 days, Estrace vaginal cream as per direction, Pepcid 20 mg daily, f errous sulfate 325 mg p.o. daily, Nephro-Zafar 1 tablet p.o. daily, Lasix 40 mg p.o. daily, Zofran 4 m g q.4 hourly p.r.n., Florastor 250 mg p.o. daily, and Flomax 0.4 mg p.o. daily. CONTRAINDICATIONS: None. CODE STATUS: FULL CODE. INPATIENT CONSULTANTS: None. ALLERGIES: No known drug allergy. DISCHARGE PLAN: Post hospital, the patient will follow up with primary care physician. The patient will get IV antibiotic therapy at [facility]. HOSPITAL COURSE: A 72-year-old female with above-mentioned medical problem, who was admitted by Dr. Ramires. Please see her H&P for further detail. The patient was having shortness of breath, edema of lower extremity. She was found with acute on chronic diastolic heart failure. She also had symptom atic anemia. She was given 1 unit of blood transfusion while in hospital. She had UTI symptoms and she had multidrug resistant bacteria and that is why Dr. Spencer recommended to continue Invanz for 10 more days. The patient will get through the peripheral IV in [facility] area. Outp atient IV antibiotic therapy arrangement done. The patient is clinically significantly improved. Sh e is hemodynamically stable, afebrile, tolerating p.o. well, ambulatory on room air. The patient is seen and examined at bedside today. Please see my progress note from today for furthe r detail.
[2018-02-24 15:59] VITALS: BP 123/65; TEMP 98.7
== END 2018-02-24 17:57 | disposition home or self-care (01) | DRG 871 ==
LOC: ERS 03:12 → T4-A 06:20 → 2SE 08:48 → T4-B 02-23 10:02
PROVIDERS: ADMIT Internal Medicine; ATTEND Internal Medicine
PROC: 30233P1 Transfusion of Nonautologous Frozen Red Cells into Peripheral Vein, Percutaneous Approach (ICD-10-PCS; principal; 2018-02-22)
DX: A41.9 Sepsis, unspecified organism (principal); I50.33 Acute on chronic diastolic (congestive) heart failure; I13.0 Hypertensive heart and chronic kidney disease with heart failure and stage 1 through stage 4 chronic kidney disease, or unspecified chronic kidney disease; E87.1 Hypo-osmolality and hyponatremia; N17.9 Acute kidney failure, unspecified; N18.4 Chronic kidney disease, stage 4 (severe); N30.00 Acute cystitis without hematuria; N25.81 Secondary hyperparathyroidism of renal origin; E11.22 Type 2 diabetes mellitus with diabetic chronic kidney disease; I35.0 Nonrheumatic aortic (valve) stenosis; R53.81 Other malaise; D63.1 Anemia in chronic kidney disease; Z16.24 Resistance to multiple antibiotics; R65.20 Severe sepsis without septic shock
CPT/HCPCS: 36415; 36416; 36430; 51701; 71045; 76770; 80048; 80053; 81003; 81015; 82274; 83036; 83605; 83735; 83880; 83930; 83935; 84100; 84300; 85025; 86850; 86900; 86901; 87040; 87077; 87086; 87186; 93005; 93798; 96361; 96365; A4216; A4353; G8978-GP-CK; G8979-GP-CJ; G8987-GO-CL; G8988-GO-CK; J0696; J1644; J1940; J2185; J2543; J7050; P9016; Q0162; Q4081